=== PATIENT | male | born 1965 | race Caucasian/White ===

== ENCOUNTER 2017-11-30 14:51 | Emergency (ER) | payer MEDICAID ==
[~2017-11-30] VITALS: Ht 175.3 cm; Wt 59.3 kg
[~2017-11-30 14:51] MED LIST: AMOX1TAB64 PO; NICO-487 TD
[2017-11-30 14:54] VITALS: BP 148/92
[2017-11-30 15:51] LABS: CULTURE INDICATED? NO; MICROSCOPIC NOT IND
== END 2017-11-30 16:08 | disposition home or self-care (01) ==
LOC: ED 16:01
DX: J20.9 Acute bronchitis, unspecified (principal); L01.00 Impetigo, unspecified
CPT/HCPCS: 71046; 81003; 99285

== ENCOUNTER 2019-07-07 11:08 | Emergency (ER) | payer MEDICAID ==
[~2019-07-07] VITALS: Ht 175.3 cm; Wt 51.0 kg
[2019-07-07 11:11] VITALS: BP 120/81
== END 2019-07-07 11:53 | disposition home or self-care (01) ==
LOC: ED 11:52
DX: L03.116 Cellulitis of left lower limb (principal); L03.311 Cellulitis of abdominal wall; B86 Scabies; F17.200 Nicotine dependence, unspecified, uncomplicated; J44.9 Chronic obstructive pulmonary disease, unspecified
CPT/HCPCS: 99283

== ENCOUNTER 2021-05-06 12:17 | Emergency (ER) | payer MEDICAID ==
[~2021-05-06 12:17] MED LIST changes: -NICO-487 TD; +NICO-587 TD
[2021-05-06 12:20] VITALS: BP 111/66
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
== END 2021-05-06 17:03 | disposition left against medical advice (07) ==
LOC: ED 16:00
DX: M25.562 Pain in left knee (principal); Z53.21 Procedure and treatment not carried out due to patient leaving prior to being seen by health care provider